=== PATIENT | male | born 1985 | race Caucasian/White ===

== ENCOUNTER 2019-12-26 22:56 | Emergency (ER) | payer MEDICAID, OTHER ==
[~2019-12-26] VITALS: Ht 170.2 cm; Wt 79.0 kg
[2019-12-26 23:04] VITALS: BP 149/88
[2019-12-26] MEDS ORDERED: diphenhydrAMINE 25mg capsule PO ONE (23:25)
[2019-12-26] MEDS ORDERED: famotidine 20mg tablet PO ONE (23:25)
[2019-12-26] MEDS ORDERED: pantoprazole 40mg Tablet.DR PO ONE (23:25)
[2019-12-26] MEDS ORDERED: CEPH500C5 PO (23:43)
== END 2019-12-27 00:14 | disposition home or self-care (01) ==
LOC: ER 22:57
DX: K11.20 Sialoadenitis, unspecified (principal); F12.90 Cannabis use, unspecified, uncomplicated; Z79.82 Long term (current) use of aspirin
CPT/HCPCS: 99283

== ENCOUNTER 2020-05-05 08:32 | Emergency (ER) | payer MEDICAID, OTHER ==
[~2020-05-05] VITALS: Ht 170.2 cm; Wt 79.5 kg
[2020-05-05 08:47] VITALS: BP 141/96
== END 2020-05-05 10:07 | disposition home or self-care (01) ==
LOC: ER 08:33
DX: M79.641 Pain in right hand (principal); F12.90 Cannabis use, unspecified, uncomplicated
CPT/HCPCS: 73110; 73130; 99284

== ENCOUNTER 2020-07-19 20:51 | Emergency (ER) | payer OTHER ==
[~2020-07-19] VITALS: Ht 170.2 cm; Wt 81.8 kg
[~2020-07-19 20:51] MED LIST: LIDOcaine 1% W/epiNEPHrine 1:200,000 10ml vial ONE
[2020-07-19] MEDS ORDERED: acetaminophen 325mg tablet PO ONE (21:25)
[2020-07-19] MEDS ORDERED: ondansetron 4mg rapidly disintigrating tab PO ONE (21:25)
[2020-07-19] MEDS ORDERED: cephalexin 250mg capsule PO ONE (21:25)
[2020-07-19] MEDS ORDERED: bacitracin 15gm ointment TP ONE (21:25)
[2020-07-19] MEDS ORDERED: ketorolac trometh inj. 60 MG/2 ML VIAL IM ONE (21:25)
[2020-07-19] MEDS ORDERED: CEPH250T PO (21:46)
[2020-07-19 21:55] VITALS: BP 137/75
== END 2020-07-19 21:56 | disposition home or self-care (01) ==
LOC: ER 20:51
DX: L02.31 Cutaneous abscess of buttock (principal); F12.90 Cannabis use, unspecified, uncomplicated; Z79.899 Other long term (current) drug therapy
CPT/HCPCS: 10060; 96372; 99284; J1885

== ENCOUNTER 2021-03-26 10:01 | Emergency (ER) | payer MEDICAID, OTHER ==
[~2021-03-26] VITALS: Ht 170.2 cm; Wt 80.3 kg
[2021-03-26 10:07] VITALS: BP 160/108
[2021-03-26] MEDS ORDERED: DOXY150T5 PO (10:24)
== END 2021-03-26 11:27 | disposition home or self-care (01) ==
LOC: ER 10:02
DX: L73.8 Other specified follicular disorders (principal); F12.90 Cannabis use, unspecified, uncomplicated; Z79.2 Long term (current) use of antibiotics
CPT/HCPCS: 36415; 86592; 99283

== ENCOUNTER 2025-08-06 13:16 | Emergency (ER) | payer MEDICAID ==
[~2025-08-06] VITALS: Ht 170.2 cm; Wt 80.1 kg
[2025-08-06 13:19] VITALS: TEMP 99.2
--- NOTE | 2025-08-06 13:44 | Physician Documentation ---
History of Present Illness ~ Chief Complaint: Testicular Pain Stated Complaint: GROIN PAIN Time Seen by MD: 13:26 OK to notify your PCP?: Yes Primary Medical Doctor: none Source: patient Mode of Arrival: POV Exam Limitations: no limitations HPI This is a 40-year-old male who comes in complaining of right-sided testicular pain for a year and a half. He denies swelling the redness or rash to the outer skin. He denies history of trauma. Denies change in urination. He states at times the pain will radiate up into the lower right pelvic area. It is 7/10 in his an aching throbbing sensation Medication Reconciliation Allergies: Coded Allergies: No Known Allergies (Unverified , 07/09/18) Scheduled Doxycycline Hyclate (Doxycycline Hyclate), 1 CAP PO Q12H Past Medical History Past Medical History: No Pertinent History Past Surgical History: no surgical history Alcohol Use: None Drug Use: marijuana Occupation: employed Physical Exam Vital Signs: Temperature: 99.2, Source: Temporal, Heart Rate: 107, Respiratory Rate: 18, BP: 148/105, Pulse Oximetry: 100, Weight: 80.100 Oxygen Flow Rate: 0 Pulse Oximetry Reflects: adequate oxygenation General Appearance: alert, WD/WN, no apparent distress Gastrointestinal No tenderness to palpation x4 quadrants. Normoactive bowel sounds x4 quadrants. No rigidity, rebound or guarding x4 quadrants. Negative Samuels's sign. Negative McBurney's point tenderness. Penile Discharge: none Glans: normal inspection Shaft: normal inspection Genital Inspection of the scrotum no erythema edema or rash. No obvious varicocele. There is tenderness to palpation of the posterior right testicle. No obvious masses. Progress Results/Orders Results/Orders Completed Orders - VANDA CHRISTOPHER MD Urinalysis, Cult If Indicated (08/06/25 13:21) Cbc/Diff (08/06/25 13:21) Lipase (08/06/25 13:21) CMP (08/06/25 13:21) Vital Signs 08/06/25 08/06/25 13:19 15:27 Temp 99.2 Pulse 107 78 Resp 18 18 B/P (MAP) 148/105 127/99 (108) Pulse Ox 100 98 O2 Flow Rate 0 Laboratory Tests Test 08/06/25 13:29 08/06/25 14:17 White Blood Count 8.1 Red Blood Count 4.70 Hemoglobin 13.6 L Hematocrit 40.6 L Mean Corpuscular Volume 86.4 Mean Corpuscular Hemoglobin 28.9 Mean Corpuscular Hemoglobin Concent 33.5 Red Cell Distribution Width 15.0 H Platelet Count 284 Mean Platelet Volume 6.9 L Neutrophils (%) (Auto) 67.0 Lymphocytes (%) (Auto) 18.9 L Monocytes (%) (Auto) 9.0 Eosinophils (%) (Auto) 4.5 Basophils (%) (Auto) 0.6 Neutrophils # (Auto) 5.4 Lymphocytes # (Auto) 1.5 Monocytes # (Auto) 0.7 Eosinophils # (Auto) 0.4 Basophils # (Auto) 0.0 CBC Comment Sodium Level 142 Potassium Level 3.8 Chloride Level 104 Carbon Dioxide Level 28.7 Anion Gap 9 Blood Urea Nitrogen 12 Creatinine 0.95 Estimated GFR/1.73 m2 88 BUN/Creatinine Ratio 12.6 Glucose Level 116 H Calcium Level 8.7 Total Bilirubin 0.1 Aspartate Amino Transf (AST/SGOT) 67 H Alanine Aminotransferase (ALT/SGPT) 137 H Alkaline Phosphatase 86 Total Protein 7.2 Albumin 3.2 L Globulin 4.0 Albumin/Globulin Ratio 0.8 L Lipase 44 Chemistry Comments Urine Specimen Description Cln catch midstream Urine Color Straw Urine Clarity Clear Urine pH 7.0 Urine Specific [place] <=1.005 Urine Protein Negative Urine Glucose (UA) Negative Urine Ketones Negative Urine Occult Blood Negative Urine Nitrite Negative Urine Bilirubin Negative Urine Urobilinogen 0.2 Urine Leukocyte Esterase Negative Urine Culture Indicated Not ind Volume Urine Centrifuged 10 ml Urine Comment Medical Decision Making Findings The ultrasound confirmed a right-sided epididymitis. The patient's blood work and urinalysis was unremarkable. I gave the patient Rocephin 1 g IM here and we will continue with doxycycline 100 mg twice a day for 10 days. Follow up with the primary care physician for Urology referral if symptoms persist. Return to the ER for any worsening or concerning symptoms. Additional Comment This specific testicular pain. Epididymitis. Spermatocele. Orchitis. Varicocele. Hydrocele. Torsion Departure Disposition: HOME / SELF CARE / HOMELESS Impression: Primary Impression: Epididymitis, right Condition: Stable Discharge Instructions: Epididymitis Referrals: NO PRIMARY CARE PROVIDER (PCP) CARLEY ZARAGOZA MD Prescriptions Doxycycline Hyclate (Doxycycline Hyclate) 100 Mg Capsule 1 CAP PO Q12H for 10 Days, #20 CAP Prov: FRANCOIS ABDALLA 08/06/25 Comments Take the antibiotics as prescribed. Ibuprofen or Tylenol for pain. Follow up with the primary care physician. I will give you contact information for the on-call urologist if your symptoms persist. Return for any worsening or concerning symptoms. Signature Scribe Signature: No scribe Attestation: The note accurately reflects work and decisions made by me.Francois FERRELL 08/06/25 14:43 FRANCOIS ABDALLA Aug 06, 2025 13:44 VANDA CHRISTOPHER MD Aug 07, 2025 07:49
[2025-08-06 13:51] LABS: MEAN PLATELET VOLUME 6.9 FL (7.4-10.4); RED CELL DISTRIBUTION WIDTH 15.0 % (11.5-14.5)
[2025-08-06 14:02] LABS: CREATININE 0.95 MG/DL (0.60-1.10); TOTAL CARBON DIOXIDE 28.7 MMOL/L (24-32); eCRCL 98 ML/MIN; eGFR 88 ML/MIN
--- NOTE | 2025-08-06 14:16 | RADIOLOGY REPORT ---
ULTRASOUND OF SCROTUM AND CONTENTS. INDICATION: Testicular pain COMPARISON: None TECHNIQUE: Multiple real-time grayscale sonographic and color and duplex Doppler images of the scrotum and its contents were obtained. FINDINGS: The right testicle measures 4 x 2 x 2 cm. The left testicle measures 3 x 2 x 2 cm. Both testicles demonstrate homogeneous echotexture without evidence of focal lesions. The right epididymal head measures 1 cm. The left epididymal head measures 0.9 cm. Subsequent color and duplex Doppler interrogation of the testes demonstrated symmetric normal vascular flow to both testicles. Increased flow to the right epididymis. Right microlithiasis is noted. IMPRESSION: Right epididymitis. Right testicular microlithiasis. Follow-up ultrasound in 6 months.
[2025-08-06 14:33] LABS: LEUKOCYTE ESTERASE ,URINE NEGATIVE (Neg); NITRITES, URINE NEGATIVE (Neg); OCCULT BLOOD,URINE NEGATIVE (Neg)
[2025-08-06 14:39] LABS: UA COLLECTION TYPE CLN CATCH MIDSTREAM
[2025-08-06] MEDS ORDERED: DOXY-1 PO (14:57)
[2025-08-06 15:27] VITALS: BP 127/99; PULSE 78; RESP 18; O2SAT 98
[2025-08-06] MEDS: CefTRIAXone 1000mg IM Kit (w/lidocaine diluent) IM ONE (15:29)
== END 2025-08-06 17:35 | disposition home or self-care (01) ==
LOC: ER 13:16
DX: N45.1 Epididymitis (principal); F12.90 Cannabis use, unspecified, uncomplicated
CPT/HCPCS: 36415; 76870; 80053; 81003; 83690; 85025; 93976; 96372; 99285; J0696